=== PATIENT | male | born 1935 | race Caucasian/White ===

== ENCOUNTER 2017-08-30 10:17 | Inpatient (IN) | payer MEDICARE ==
[~2017-08-30] VITALS: Ht 167.6 cm; Wt 79.0 kg
[~2017-08-30 10:17] MED LIST: AMLODIPINE BESY10 MG PO; AZITHROMYCIN250 MG PO; BENICAR40 MG PO; CARBAMAZEPINE200 M2 PO; DEXILANT60 MG PO; DICYCLOMINE HCL20 MG PO; GLIPIZIDE ER5 MG PO; LASIX40 MG PO; LEXAPRO PO; LEXAPRO10 MG PO; LYRICA50 MG PO; METFORMIN HCL850 MG PO; NAPROXEN500 MG PO; PANTOPRAZOLE SO40 MG PO; PLAVIX75 MG PO; PROTONIX40 M1 PO; TEGRETOL200 MG PO; TRILIPIX135 MG PO; ULTRAM 50MG50 MG PO; Z.0.ASPIRIN CHEW81 M; Z.0.BENICAR40 MG PO; Z.0.BENTYL20 MG; Z.0.CIPRO750 MG; Z.0.FLAGYL500 MG; Z.0.GLIPIZIDE5 MG; Z.0.LASIX40 MG; Z.0.LEXAPRO10 MG PO; Z.0.METFORMIN HCL850 PO; Z.0.NAPROXEN500 M1 PO; Z.0.NORVASC10 MG PO; Z.0.SIMVASTATIN20 MG PO; Z.0.TRILIPIX135 MG PO; Z.0.ZOFRAN4 MG; ZANTAC300 MG PO; [UNRECOGNIZED DRUG - OTHER]
[2017-08-30] MEDS ORDERED: SODIUM CHLORIDE 0.9% 1000ML 1,000 ML IV STA (10:23)
[2017-08-30 10:55] LABS: BASOPHILS % 0.4 % (0.0-1.0); EOSINOPHILS # (AUTO) 0.2 (0.0-0.4); EOSINOPHILS % 3.4 % (0.0-6.0); HEMATOCRIT 44.5 % (38.2-49.6); HEMOGLOBIN 14.7 g/dL (14.0-18.0); LYMPHOCYTES # (AUTO) 2.2 (1.0-3.2); LYMPHOCYTES % 30.9 % (18.0-39.1); MEAN CORPUSCULAR HEMOGLOBIN 31.7 pg (28-32); MEAN CORPUSCULAR VOLUME 95.9 fL (81-99); MONOCYTES # (AUTO) 0.7 (0.2-0.8); MONOCYTES % 9.5 % (4.4-11.3); NEUTROPHILS % 55.4 % (38.7-80.0); PLATELET COUNT 200 x10e3/uL (140-360); RED BLOOD COUNT 4.64 x10e6/uL (4.3-5.7); RED CELL DISTRIBUTION WIDTH 13.3 % (11.7-14.4)
[2017-08-30 11:09] LABS: INR 1.01; PROTHROMBIN TIME 13.8 seconds (11.9-14.5)
[2017-08-30 11:10] LABS: PARTIAL THROMBOPLASTIN TIME 28.7 seconds (23.8-35.5)
[2017-08-30 11:18] LABS: ALBUMIN 3.8 g/dL (3.5-5.0); ALBUMIN/GLOBULIN RATIO 1.1 (0.8-2.0); ANION GAP 13.1 mmol/L (8-16); CALCIUM 9.6 mg/dL (8.4-10.2); CREATININE, SERUM 1.17 mg/dL (0.72-1.25); MAGNESIUM 1.6 MG/DL (1.3-2.1); POTASSIUM 4.1 mmol/L (3.5-5.1)
[2017-08-30 11:20] LABS: B-TYPE NATRIURETIC PEPTIDE2 79.3 pg/mL (0-100)
[2017-08-30 11:37] LABS: CREATINE KINASE MB 0.6 ng/mL (0.00-5.00); THYROID STIMULATING HORMONE 2.678 uIU/mL (0.350-4.940); TROPONIN I 0.015 ng/mL (0-0.300)
--- NOTE | 2017-08-30 11:37 | Diagnostic Imaging Report ---
Exam: Head CT without contrast History: Weakness Comparison studies: None Technique: Axial images were obtained from the skull base to the vertex. Coronal and sagittal images reconstructed from the axial data. Intravenous contrast: None Findings: Scalp: No abnormalities. Bones: No fractures, blastic or lytic lesions. Brain sulci: Moderately prominent Ventricles: Moderate compensatory dilatation. No hydrocephalus. Extra-axial spaces: Approximately 8 mm thick hypodense chronic subdural hematoma or hygroma along the left frontal convexity is with mild regional mass effect which results in 4 mm midline shift from left to right. Mildly prominent 6 mm thick hypodense extra-axial space at the anterior right frontal convexity may represent additional chronic subdural fluid collection or be secondary to volume loss. Parenchyma: No mass, acute hemorrhage or acute cortical vascular insults. Chronic cortical-subcortical insult within the right middle frontal gyrus. A few scattered hypodensities in the supratentorial white matter are nonspecific but most compatible with chronic small vessel ischemic changes. Small chronic lacunar infarct in the left thalamus. Sellar/suprasellar region: No abnormalities. Craniocervical junction: Patent foramen magnum. No Chiari one malformation. 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 Bilateral lens replacements related to previous cataract surgery. IMPRESSION: No acute intracranial abnormalities. Chronic findings: 1. 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 Possible small chronic right frontal subdural fluid collection without significant mass effect. 2. Moderate generalized volume loss. 3. Small chronic right middle frontal insult. 4. Mild microvascular ischemic changes with small left thalamic lacunar infarct. Signed by: Dr. Rufino Rinaldi M.D. on 08/30/2017 11:33 AM
[2017-08-30 11:59] LABS: BILIRUBIN,URINE NEGATIVE (NEGATIVE); COLOR,URINE YELLOW (YELLOW); KETONES,URINE NEGATIVE (NEGATIVE); LEUKOCYTE ESTERASE ,URINE 1+ (NEGATIVE); URINE UROBILINOGEN 0.2 mg/dL (0.2 - 1)
--- NOTE | 2017-08-30 11:59 | Diagnostic Imaging Report ---
EXAMINATION: CHEST SINGLE (PORTABLE) INDICATION: Weakness \S\ERMD ORDER \S\[id number] \S\1045 \S\Y COMPARISON: 11/22/2014 FINDINGS: AP view TUBES and LINES: None. LUNGS: Limited by body habitus. Unchanged elevated right hemidiaphragm. No definite focal consolidation. Mild central vascular congestion. PLEURA: No significant pleural effusion or pneumothorax. HEART AND MEDIASTINUM: Enlarged mediastinal silhouette. BONES AND SOFT TISSUES: No acute osseous lesion. Severe degenerative changes of shoulder joints. Soft tissues are unremarkable. UPPER ABDOMEN: No free air under the diaphragm. IMPRESSION: No significant interval change from prior exam. Enlarged cardiomediastinal silhouette. Unchanged elevated right hemidiaphragm. Mild central vascular congestion. Signed by: Dr. Frank Harvey MD on 08/30/2017 11:55 AM
[2017-08-30 12:00] LABS: CLARITY,URINE SL CLOUDY (CLEAR); NITRITE,URINE POSITIVE (NEGATIVE); PROTEIN,URINE DIPSTICK 2+ (NEGATIVE)
[2017-08-30 12:12] LABS: AMORPHOUS SEDIMENT,URINE FEW (FEW); BACTERIA,URINE FEW /HPF; EPITHELIAL CELLS,URINE FEW /LPF; RBC,URINE 21-50 /HPF (0-5)
[2017-08-30] MEDS: SODIUM CHLORIDE 0.9% 1000ML 1,000 ML IV SCH ×2 (13:25→21:44)
[2017-08-30] MEDS: LEVOFLOXACIN 500 MG TAB PO SCH (13:25)
[2017-08-30] MEDS ORDERED: ZOLOFT50 MG PO (18:27)
[2017-08-30] MEDS ORDERED: TEGRETOL200 MG PO (18:27)
[2017-08-30] MEDS ORDERED: LORAZEPAM0.5 MG PO (18:27)
[2017-08-30] MEDS ORDERED: ACETAMINOPHEN325 M1 PO (18:27)
[2017-08-30] MEDS ORDERED: ELIQUIS PO (18:27)
[2017-08-30] MEDS ORDERED: SYMBICORT 80-10.2 GM INH (18:29)
[2017-08-30 20:00] VITALS: BP 157/74
[2017-08-30] MEDS ORDERED: ALBUTEROL/IPRATROPIUM 3 ML NEB NEB PRN (20:15)
[2017-08-30 21:20] VITALS: BP 157/74
[2017-08-30 21:26] VITALS: BP 157/74
[2017-08-31] VITALS (8 sets, daily range): BP systolic 126–158; BP diastolic 60–91
[2017-08-31 07:08] LABS: BASOPHILS % 0.4 % (0.0-1.0); EOSINOPHILS # (AUTO) 0.2 (0.0-0.4); EOSINOPHILS % 3.1 % (0.0-6.0); HEMOGLOBIN 12.5 g/dL (14.0-18.0); LYMPHOCYTES # (AUTO) 1.7 (1.0-3.2); LYMPHOCYTES % 22.8 % (18.0-39.1); MEAN CORPUSCULAR HEMOGLOBIN 31.5 pg (28-32); MEAN CORPUSCULAR HGB CONC 32.9 g/dL (31-35); MEAN CORPUSCULAR VOLUME 95.7 fL (81-99); MONOCYTES # (AUTO) 0.6 (0.2-0.8); MONOCYTES % 8.7 % (4.4-11.3); NEUTROPHILS # (AUTO) 4.7 (2.1-6.9); NEUTROPHILS % 64.3 % (38.7-80.0); PLATELET COUNT 177 x10e3/uL (140-360); RED BLOOD COUNT 3.97 x10e6/uL (4.3-5.7); RED CELL DISTRIBUTION WIDTH 13.1 % (11.7-14.4)
[2017-08-31 07:46] LABS: ANION GAP 12.9 mmol/L (8-16); BLOOD UREA NITROGEN 11 mg/dL (7-26); BUN/CREATININE RATIO 11 (6-25); CALCIUM 8.7 mg/dL (8.4-10.2); CARBON DIOXIDE 24 mmol/L (22-29); CHLORIDE 106 mmol/L (98-107); CREATININE, SERUM 0.98 mg/dL (0.72-1.25); EST GLOMERULAR FILTRATION RATE > 60 ML/MIN (60-); GLUCOSE 129 mg/dL (74-118); POTASSIUM 3.9 mmol/L (3.5-5.1); SODIUM 139 mmol/L (136-145)
[2017-08-31] MEDS: SODIUM CHLORIDE 0.9% 1000ML 1,000 ML IV SCH ×2 (09:32→18:54)
[2017-08-31] MEDS: ALBUTEROL/IPRATROPIUM 3 ML NEB NEB SCH ×3 (09:50→18:55)
[2017-08-31] MEDS ORDERED: AMLODIPINE BESYLATE 10 MG TAB PO SCH (10:15)
[2017-08-31] MEDS: LEVOFLOXACIN 500 MG TAB PO SCH (12:42)
[2017-08-31] MEDS: TRAMADOL HCL 50 MG TAB PO SCH ×3 (14:00→21:56)
[2017-08-31] MEDS: ACETAMINOPHEN 325 MG TAB PO SCH (17:01)
[2017-08-31] MEDS: CARBAMAZEPINE 200 MG TAB PO SCH (17:01)
[2017-08-31] MEDS: PANTOPRAZOLE SOD 40 MG TABEC PO SCH (17:01)
[2017-09-01] VITALS (8 sets, daily range): BP systolic 108–138; BP diastolic 60–86
[2017-09-01] MEDS: TRAMADOL HCL 50 MG TAB PO SCH ×6 (02:00→21:54)
[2017-09-01] MEDS: ALBUTEROL/IPRATROPIUM 3 ML NEB NEB SCH ×4 (03:20→19:00)
[2017-09-01 06:41] LABS: BASOPHILS % 0.3 % (0.0-1.0); EOSINOPHILS # (AUTO) 0.2 (0.0-0.4); HEMATOCRIT 38.1 % (38.2-49.6); HEMOGLOBIN 12.7 g/dL (14.0-18.0); LYMPHOCYTES # (AUTO) 1.4 (1.0-3.2); LYMPHOCYTES % 12.8 % (18.0-39.1); MEAN CORPUSCULAR HEMOGLOBIN 32.2 pg (28-32); MEAN CORPUSCULAR HGB CONC 33.3 g/dL (31-35); MEAN CORPUSCULAR VOLUME 96.7 fL (81-99); MONOCYTES % 9.2 % (4.4-11.3); NEUTROPHILS # (AUTO) 7.9 (2.1-6.9); NEUTROPHILS % 75.4 % (38.7-80.0); PLATELET COUNT 173 x10e3/uL (140-360); RED BLOOD COUNT 3.94 x10e6/uL (4.3-5.7); RED CELL DISTRIBUTION WIDTH 12.7 % (11.7-14.4)
[2017-09-01 07:10] LABS: ANION GAP 13.9 mmol/L (8-16); BLOOD UREA NITROGEN 11 mg/dL (7-26); BUN/CREATININE RATIO 12 (6-25); CALCIUM 8.8 mg/dL (8.4-10.2); CARBON DIOXIDE 23 mmol/L (22-29); CHLORIDE 102 mmol/L (98-107); CREATININE, SERUM 0.95 mg/dL (0.72-1.25); EST GLOMERULAR FILTRATION RATE > 60 ML/MIN (60-); GLUCOSE 131 mg/dL (74-118); POTASSIUM 3.9 mmol/L (3.5-5.1); SODIUM 135 mmol/L (136-145)
[2017-09-01] MEDS: PANTOPRAZOLE SOD 40 MG TABEC PO SCH ×2 (08:37→17:02)
[2017-09-01] MEDS: SERTRALINE HCL 50 MG TAB PO SCH (08:37)
[2017-09-01] MEDS: LORAZEPAM 0.5 MG TAB PO SCH (08:37)
[2017-09-01] MEDS: SODIUM CHLORIDE 0.9% 1000ML 1,000 ML IV SCH ×2 (08:37→21:56)
[2017-09-01] MEDS: ACETAMINOPHEN 325 MG TAB PO SCH ×2 (08:37→17:02)
[2017-09-01] MEDS: GLIPIZIDE 5 MG TAB ER PO SCH (08:37)
[2017-09-01] MEDS: CARBAMAZEPINE 200 MG TAB PO SCH ×2 (08:37→17:02)
[2017-09-01] MEDS: BUDESONIDE/FORMOTEROL FUMARATE 80/4.5MCG 6.9 GM INH AEROSOL IH SCH ×2 (13:42→19:00)
[2017-09-01] MEDS ORDERED: MEROPENEM 1GRAM 1 GM in SODIUM CHLORIDE 0.9% 100 ML 100 ML IV SCH (14:00)
[2017-09-01] MEDS: MEROPENEM 1 GM VIAL IV SCH ×2 (15:19→21:54)
[2017-09-02] VITALS (7 sets, daily range): BP systolic 108–141; BP diastolic 68–96
[2017-09-02] MEDS: ALBUTEROL/IPRATROPIUM 3 ML NEB NEB SCH ×2 (01:00→07:05)
[2017-09-02] MEDS: DEXTROSE 5% 1,000 ML IV SCH ×2 (01:12→15:50)
[2017-09-02] MEDS: TRAMADOL HCL 50 MG TAB PO SCH ×6 (02:00→22:45)
[2017-09-02] MEDS: MEROPENEM 1 GM VIAL IV SCH ×3 (06:17→22:17)
[2017-09-02] MEDS: BUDESONIDE/FORMOTEROL FUMARATE 80/4.5MCG 6.9 GM INH AEROSOL IH SCH (07:00)
[2017-09-02] MEDS: PANTOPRAZOLE SOD 40 MG TABEC PO SCH ×2 (09:25→16:30)
[2017-09-02] MEDS: ACETAMINOPHEN 325 MG TAB PO SCH ×2 (09:25→17:24)
[2017-09-02] MEDS: SERTRALINE HCL 50 MG TAB PO SCH (09:25)
[2017-09-02] MEDS: CARBAMAZEPINE 200 MG TAB PO SCH ×2 (09:25→17:24)
[2017-09-02] MEDS: GLIPIZIDE 5 MG TAB ER PO SCH (09:25)
[2017-09-02] MEDS: LORAZEPAM 0.5 MG TAB PO SCH (09:25)
[2017-09-02] MEDS ORDERED: ONDANSETRON HCL INJ 2 MG/ML VIAL IV PRN (21:15)
[2017-09-02] MEDS: ONDANSETRON HCL INJ 2 MG/ML VIAL IV PRN (22:53)
[2017-09-03] VITALS: BP 155/90
[2017-09-03] MEDS: TRAMADOL HCL 50 MG TAB PO SCH ×6 (02:00→21:27)
[2017-09-03] MEDS: DEXTROSE 5% 1,000 ML IV SCH ×2 (03:41→15:15)
[2017-09-03] MEDS: MEROPENEM 1 GM VIAL IV SCH ×3 (06:32→21:27)
[2017-09-03] MEDS: ALBUTEROL/IPRATROPIUM 3 ML NEB NEB SCH ×3 (07:15→20:30)
[2017-09-03 07:50] VITALS: BP 139/80
[2017-09-03] MEDS: CARBAMAZEPINE 200 MG TAB PO SCH ×2 (08:45→17:00)
[2017-09-03] MEDS: PANTOPRAZOLE SOD 40 MG TABEC PO SCH ×2 (08:45→16:30)
[2017-09-03] MEDS: GLIPIZIDE 5 MG TAB ER PO SCH (08:45)
[2017-09-03] MEDS: SERTRALINE HCL 50 MG TAB PO SCH (08:45)
[2017-09-03] MEDS: LORAZEPAM 0.5 MG TAB PO SCH (08:45)
[2017-09-03] MEDS: ACETAMINOPHEN 325 MG TAB PO SCH ×2 (08:45→17:00)
[2017-09-03 10:38] VITALS: BP 139/80
--- NOTE | 2017-09-03 16:04 | Diagnostic Imaging Report ---
PROCEDURE:X-RAY ABDOMEN - KUB COMPARISON:Patients [facility], DX, CHEST SINGLE (PORTABLE), 12/10/2015, 14:53. INDICATIONS:NAUSEA. VOMITING FINDINGS: There are no dilated loops of bowel to suggest obstruction. Calcific densities projected over both flanks may represent renal calculi.. There is no evidence of free air. Multilevel degenerative changes of the lumbar spine. Small clip is projected in the pelvis. Significance projected on the right upper quadrant. CONCLUSION: Nonobstructive bowel gas pattern. Probable bilateral renal calculi. Sheree Covarrubias M.D. Dictated by: Sheree Covarrubias M.D. on 09/03/2017 at 16:13 Electronically approved by: Sheree Covarrubias M.D. on 09/03/2017 at 16:13
[2017-09-03 16:55] VITALS: BP 136/86
[2017-09-03 20:00] VITALS: BP 147/83
[2017-09-03] MEDS: BUDESONIDE/FORMOTEROL FUMARATE 80/4.5MCG 6.9 GM INH AEROSOL IH SCH (20:30)
[2017-09-03 23:18] VITALS: BP 147/83
[2017-09-04] VITALS: BP 128/67
[2017-09-04] MEDS: ALBUTEROL/IPRATROPIUM 3 ML NEB NEB SCH ×3 (01:15→13:00)
[2017-09-04] MEDS: ONDANSETRON HCL INJ 2 MG/ML VIAL IV PRN (02:17)
[2017-09-04] MEDS: TRAMADOL HCL 50 MG TAB PO SCH ×3 (02:18→10:00)
[2017-09-04 04:00] VITALS: BP 116/81
[2017-09-04] MEDS: DEXTROSE 5% 1,000 ML IV SCH (04:30)
[2017-09-04] MEDS: MEROPENEM 1 GM VIAL IV SCH (06:22)
[2017-09-04] MEDS: BUDESONIDE/FORMOTEROL FUMARATE 80/4.5MCG 6.9 GM INH AEROSOL IH SCH (07:00)
[2017-09-04 07:07] LABS: BASOPHILS % 0.4 % (0.0-1.0); EOSINOPHILS # (AUTO) 0.2 (0.0-0.4); EOSINOPHILS % 2.9 % (0.0-6.0); HEMATOCRIT 35.8 % (38.2-49.6); HEMOGLOBIN 12.1 g/dL (14.0-18.0); LYMPHOCYTES # (AUTO) 1.4 (1.0-3.2); LYMPHOCYTES % 17.2 % (18.0-39.1); MEAN CORPUSCULAR HEMOGLOBIN 32.3 pg (28-32); MEAN CORPUSCULAR HGB CONC 33.8 g/dL (31-35); MEAN CORPUSCULAR VOLUME 95.5 fL (81-99); MONOCYTES % 13.2 % (4.4-11.3); NEUTROPHILS # (AUTO) 5.1 (2.1-6.9); NEUTROPHILS % 65.2 % (38.7-80.0); PLATELET COUNT 169 x10e3/uL (140-360); RED BLOOD COUNT 3.75 x10e6/uL (4.3-5.7); RED CELL DISTRIBUTION WIDTH 12.7 % (11.7-14.4)
[2017-09-04] MEDS: PANTOPRAZOLE SOD 40 MG TABEC PO SCH (07:30)
[2017-09-04 07:40] LABS: ANION GAP 13.1 mmol/L (8-16); BLOOD UREA NITROGEN 13 mg/dL (7-26); BUN/CREATININE RATIO 16 (6-25); CALCIUM 8.9 mg/dL (8.4-10.2); CARBON DIOXIDE 26 mmol/L (22-29); CHLORIDE 95 mmol/L (98-107); CREATININE, SERUM 0.81 mg/dL (0.72-1.25); EST GLOMERULAR FILTRATION RATE > 60 ML/MIN (60-); GLUCOSE 107 mg/dL (74-118); POTASSIUM 4.1 mmol/L (3.5-5.1); SODIUM 130 mmol/L (136-145)
[2017-09-04 07:56] VITALS: BP 128/82
[2017-09-04] MEDS ORDERED: GLIPIZIDE 5 MG TAB ER PO SCH (08:00)
[2017-09-04] MEDS: SERTRALINE HCL 50 MG TAB PO SCH (09:00)
[2017-09-04] MEDS: LORAZEPAM 0.5 MG TAB PO SCH (09:00)
[2017-09-04] MEDS: CARBAMAZEPINE 200 MG TAB PO SCH (09:00)
[2017-09-04] MEDS: ACETAMINOPHEN 325 MG TAB PO SCH (09:00)
[2017-09-04 11:37] VITALS: BP 138/71
== END 2017-09-04 14:25 | DRG 872 ==
LOC: ER 10:17 → ERHOLD 12:54 → MED/SURG 20:33 → OBSVTOIN 08-31 09:58 → IMCU 08-31 11:01 → MED/SURG 08-31 11:03 → MED/SURG3 09-02 14:40
DX: A41.52 Sepsis due to Pseudomonas (principal); J44.0 Chronic obstructive pulmonary disease with (acute) lower respiratory infection; E11.9 Type 2 diabetes mellitus without complications; N39.0 Urinary tract infection, site not specified; I25.10 Atherosclerotic heart disease of native coronary artery without angina pectoris; J20.9 Acute bronchitis, unspecified; R53.81 Other malaise; Z79.4 Long term (current) use of insulin; R11.2 Nausea with vomiting, unspecified; Z88.5 Allergy status to narcotic agent
CPT/HCPCS: 36415; 70450; 71045; 74000; 80048; 80053; 81001; 82550; 82553; 82948; 83605; 83690; 83735; 83880; 84443; 84484; 85025; 85610; 85730; 87086; 87186; 87400; 93005; 94640; 96360; 97139; 99284; G0378; J2185; J2405; J7030; J7070

== ENCOUNTER → 2017-10-01 | Day surgery (SDC) | payer MEDICARE ==
[~2017-10-01] MED LIST changes: +ACETAMINOPHEN325 M1 PO; +ELIQUIS PO; +LORAZEPAM0.5 MG PO; +PROPOFOL IV EMULSION 10 MG/ML 50 ML VIAL ONE; +SYMBICORT 80-10.2 GM INH; +ZOLOFT50 MG PO
--- OUTSIDE RECORDS SUMMARY | 2017-10-01 09:42 | XMS REPORT ---
Author Author [facility] Address Unknown Phone Unavailable Care Team Providers Care Electrophysiology Scientist Name Role Phone ANAHI GARCIA Unavailable Unavailable Problems This patient has no known problems. Allergies, Adverse Reactions, Alerts This patient has no known allergies or adverse reactions. Medications This patient has no known medications. Results Test Description Test Time Test Comments Text Results Atomic Results Result Comments ABDOMEN-1VIEW (KUB) [place] [address] Patient Name: PHILLY SOARES MR #: [id number] : 1935 Age/Sex: 82/M Req #: [id number] Adm Physician: ANAHI GARCIA MD Ordered by: ANAHI GARCIA MD Report #: [id number] Location: MED/SURG3 Room/Bed: [facility] Procedure: [id number] DX/ABDOMEN-1VIEW (KUB) Exam Date : 09/03/17 Exam Time: 1545 REPORT STATUS: Signed PROCEDURE: X-RAY ABDOMEN - KUB COMPARISON: [facility], DX, CHEST SINGLE (PORTABLE), 12/10/2015, 14:53. INDICATIONS: NAUSEA. VOMITING FINDINGS: There are no dilated loops of bowel to suggest obstruction. Calcific densities projected over both flanks may represent renal calculi.. There is no evidence of free air. Multilevel degenerative changes of the lumbar spine. Small clip is projected in the pelvis. Significance projected on the right upper quadrant. CONCLUSION: Nonobstructive bowel gas pattern. Probable bilateral renal calculi. Sheree Kern M.D. Dictated by: Sheree Kern M.D. on 09/03/2017 at 16:13 Electronically approved by: Sheree Kern M.D. on 09/03/2017 at 16:13 Dictated By: ARON KERN MD, MD 161 COPY TO: ANAHI GARCIA MD CT BRAIN WO [place] [address] Patient Name: PHILLY SOARES MR #: [id number] : 1935 Age/Sex: 82/M Req # : [id number] Adm Physician: Ordered by: YAMILA CORDOVA [employer] Report #: [id number] Location: ER Room/Bed: Procedure: [id number] CT/CT BRAIN WO Exam Date: 08/30/17 Exam Time: 1045 REPORT STATUS: Signed Exam: Head CT without contrast History: Weakness Comparison studies: None Technique: Axial images were obtained from the skull base to the vertex. Coronal and sagittal images reconstructed from the axial data. Intravenous contrast: None Findings: Scalp: No abnormalities. Bones: No fractures, blastic or lytic lesions. Brain sulci: Moderately prominent Ventricles: Moderate compensatory dilatation. No hydrocephalus. Extra-axial spaces: Approximately 8 mm thick hypodense chronic subdural hematoma or hygroma along the left frontal convexity is with mild regional mass effect which results in 4 mm midline shift from left to right. Mildly prominent 6 mm thick hypodense extra-axial space at the anterior right frontal convexity may represent additional chronic subdural fluid collection or be secondary to volume loss. Parenchyma: No mass, acute hemorrhage or acute cortical vascular insults. Chronic cortical-subcortical insult within the right middle frontal gyrus. A few scattered hypodensities in the supratentorial white matter are nonspecific but most compatible with chronic small vessel ischemic changes. Small chronic lacunar infarct in the left thalamus. Sellar/suprasellar region: No abnormalities. Craniocervical junction: Patent foramen magnum. No Chiari one malformation. 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 Bilateral lens replacements related to previous cataract surgery. IMPRESSION: No acute intracranial abnormalities. Chronic findings: 1. 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 Possible small chronic right frontal subdural fluid collection without significant mass effect. 2. Moderate generalized volume loss. 3. Small chronic right middle frontal insult. 4. Mild microvascular ischemic changes with small left thalamic lacunar infarct. Signed by: Dr. Peace Rinaldi M.D. on 08/30/2017 11:33 AM Dictated By: PEACE RINALDI MD 1133 Transcribed By: JANUSZ on 08/30/17 1133 COPY TO: YAMILA CORDOVA NP [facility] ([facility]) [place] [address] Patient Name: PHILLY SOARES MR #: [id number] : 1935 Age/Sex: 82/M Req #: [id number] Adm Physician: Ordered by: YAMILA CORDOVA NP Report #: [id number] Location: ER Room/Bed: Procedure: [id number] DX/CHEST SINGLE (PORTABLE) Exam Date: 08/30/17 Exam Time: 1045 REPORT STATUS: Signed EXAMINATION: CHEST SINGLE (PORTABLE) INDICATION: Weakness COMPARISON: 11/22/2014 FINDINGS: AP view TUBES and LINES: None. LUNGS: Limited by body habitus. Unchanged elevated right hemidiaphragm. No definite focal consolidation. Mild central vascular congestion. PLEURA: No significant pleural effusion or pneumothorax. HEART AND MEDIASTINUM: Enlarged mediastinal silhouette. BONES AND SOFT TISSUES: No acute osseous lesion. Severe degenerative changes of shoulder joints. Soft tissues are unremarkable. UPPER ABDOMEN: No free air under the diaphragm. IMPRESSION: No significant interval change from prior exam. Enlarged cardiomediastinal silhouette. Unchanged elevated right hemidiaphragm. Mild central vascular congestion. Signed by: Dr. Frank Zhou MD on 08/30/2017 11:55 AM Dictated By: FRANK ZHOU MD 1151 Transcribed By: JAUNSZ on 08/30/17 1155 COPY TO: YAMILA CORDOVA NP
[2017-10-01 11:05] LABS: ANION GAP 15.4 mmol/L (8-16); CALCIUM 9.6 mg/dL (8.4-10.2); CREATININE, SERUM 1.2 mg/dL (0.72-1.25); POTASSIUM 4.4 mmol/L (3.5-5.1)
--- NOTE | 2017-10-01 12:45 | Operative Report ---
DATE OF PROCEDURE: October 01, 2017 REFERRING PHYSICIAN: Dr. Naveen Garcia. PROCEDURE PERFORMED: Esophagogastroduodenoscopy with esophageal dilatation. INDICATIONS FOR EGD: Dysphagia. MEDICATION: Patient was done under MAC. Please see anesthesiologist's note. PROCEDURE: With the patient in the left lateral decubitus position, the flexible fiberoptic Olympus gastroscope was introduced into the esophagus under direct visualization without any difficulty. There was some patchy erythema noted in the distal esophagus. The scope was then advanced with ease into the stomach, traversing a mild stricture at the GE junction, and that was dilated to size 52-[place]. The scope also traversed a small sliding hiatal hernia. Mucosa overlying the antrum and the body revealed some patchy erythema and mild to moderate edema, and biopsies were obtained and sent to stain for H. pylori. Pylorus appeared to be of normal contour and shape, was intubated with ease, and the scope was advanced all the way to the 2nd portion of the duodenum. The scope was then withdrawn slowly. Mucosa overlying the proximal 2nd portion and the duodenal bulb appeared to be within normal limits. The scope was then withdrawn back into the stomach and retroflexed, and the mucosa overlying the fundus appeared to be within normal limits. The previously described hiatal hernia was also noted in the retroflexed position. The scope was then straightened out. The stomach was decompressed. The scope was subsequently withdrawn. Patient tolerated procedure well. IMPRESSION: 1. Mild distal esophagitis. 2. Esophageal stricture at gastroesophageal junction dilated to size 52-[place]. 3. Small hiatal hernia. 4. Gastritis biopsied. Biopsies sent to stain for H. pylori. PLAN: Follow up histology. Continue Dexilant 60 mg 1 p.o. a.c. b.i.d. Job#: [id number] EV cc:NAVEEN GARCIA MD
== END | disposition home or self-care (01) ==
LOC: ENDO 09:38
PROVIDERS: ATTEND Internal Medicine Gastroenterology
DX: K22.2 Esophageal obstruction (principal); K29.70 Gastritis, unspecified, without bleeding; K21.0 Gastro-esophageal reflux disease with esophagitis; K44.9 Diaphragmatic hernia without obstruction or gangrene; K57.90 Diverticulosis of intestine, part unspecified, without perforation or abscess without bleeding; J44.9 Chronic obstructive pulmonary disease, unspecified; I48.91 Unspecified atrial fibrillation; I25.10 Atherosclerotic heart disease of native coronary artery without angina pectoris; E11.22 Type 2 diabetes mellitus with diabetic chronic kidney disease; I12.9 Hypertensive chronic kidney disease with stage 1 through stage 4 chronic kidney disease, or unspecified chronic kidney disease; N18.9 Chronic kidney disease, unspecified; F32.9 Major depressive disorder, single episode, unspecified; Z79.02 Long term (current) use of antithrombotics/antiplatelets; Z86.73 Personal history of transient ischemic attack (TIA), and cerebral infarction without residual deficits; Z87.891 Personal history of nicotine dependence; Z80.0 Family history of malignant neoplasm of digestive organs
CPT/HCPCS: 43239; 43450; G0257; 36415; 80048; 82948; 88305; 88312